=== PATIENT | male | born 1950 ===

== ENCOUNTER 2017-12-12 05:38 | Day surgery (SDC) | payer OTHER ==
[~2017-12-12 05:38] MED LIST: AMBIEN10 MG PO; ATORVASTATIN CA20 MG PO; DEXILANT60 MG PO; FENOFIBRATE PO; NORFLEX PO; SYNTHROID75 MCG PO; VOLTAREN100 GM; ZYRTEC10 MG; [UNRECOGNIZED DRUG - OTHER] PO
[2017-12-12] MEDS ORDERED: ZOFRAN ODT4 MG PO (09:07)
[2017-12-12] MEDS ORDERED: PROTONIX40 MG PO (09:07)
[2017-12-12] MEDS ORDERED: DICLOFENAC POTA50 MG PO (09:07)
[2017-12-12] MEDS ORDERED: PERCOCET 5-3251 EACH PO (09:07)
== END 2017-12-12 12:35 | disposition home or self-care (01) ==
LOC: CIR.AMB 05:38
DX: K80.10 Calculus of gallbladder with chronic cholecystitis without obstruction (principal)